=== PATIENT | female | born 1970 | race Caucasian/White ===

== ENCOUNTER 2023-11-12 10:01 | Emergency (ER) | payer OTHER ==
[~2023-11-12] VITALS: Ht 165.1 cm; Wt 73.5 kg
[2023-11-12 10:07] VITALS: BP 119/69; RESP 20; TEMP 99.1; O2SAT 99
[2023-11-12 10:21] VITALS: BP 119/69; PULSE 60; RESP 20; TEMP 99.1; O2SAT 99
[2023-11-12] MEDS ORDERED: FAMO-92 PO (11:32)
== END 2023-11-12 11:36 | disposition home or self-care (01) ==
LOC: MED 10:01
DX: K21.9 Gastro-esophageal reflux disease without esophagitis (principal); M53.3 Sacrococcygeal disorders, not elsewhere classified; E78.5 Hyperlipidemia, unspecified; Z98.890 Other specified postprocedural states; Z79.899 Other long term (current) drug therapy
CPT/HCPCS: 81002; 99282